=== PATIENT | female | born 1955 | race American Indian/Alaskan Native ===

== ENCOUNTER 2016-11-16 06:45 | Day surgery (SDC) | payer BC ==
--- NOTE | 2016-11-16 08:03 | Discharge Summary ---
Providers - Providers Date of discharge: 11/16/16 Attending physician: ALLYSSA ESTEVEZ Primary care physician: GINA WATSON Hospitalization Reason for admission: outpatient EGD Condition: Stable Procedures: EGD Disposition: - TO HOME OR SELFCARE Core Measure Documentation - Palliative Care Palliative Care/ Comfort Measures: Not Applicable - Core Measures Any of the following diagnoses?: none Exam - Physical Exam Narrative exam: unchanged from preop - Constitutional Vitals: Temp Pulse Resp BP Pulse Ox 97.4 F L 49 L 18 117/66 99 11/16/16 07:53 11/16/16 07:53 11/16/16 07:53 11/16/16 07:53 11/16/16 07:53 Plan Activity: advance as tolerated Diet: low carbohydrate Follow up with: GINA WATSON MD [Primary Care Provider] - 7 Days
--- NOTE | 2016-11-16 08:20 | Anesthesia Consultation ---
Anesthesia Consult and Med Hx Date of service: 11/16/16 - Airway Anesthetic Teeth Evaluation: Dentures, Edentulous ROM Head & Neck: Adequate Mental/Hyoid Distance: Adequate Mallampati Class: Class II Intubation Access Assessment: Probably Good - Pulmonary Exam CTA: Yes - Cardiac Exam Cardiac Exam: RRR - Pre-Operative Health Status ASA Pre-Surgery Classification: ASA3 Proposed Anesthetic Plan: MAC - Pulmonary Hx Smoking: Yes (quit in 1975) Hx Asthma: No Hx Sleep Apnea: No - Cardiovascular System Hx Hypertension: Yes - Central Nervous System Hx Seizures: No CVA: No - Endocrine Hx Renal Disease: No Hx End Stage Renal Disease: No Hx Non-Insulin Dependent Diabetes: Yes - Other Systems Hx Obesity: Yes (morbid)
--- NOTE | 2016-11-16 08:20 | Anesthesia Day of Surgery ---
Anesthesia Day of Surgery - Day of Surgery Patient Examined: Yes Patient H&P Reviewed: Yes Patient is NPO: Yes
[2016-11-16] MEDS: NACL 0.9% 1000 ML 1,000 ML IV SCH ×2 (08:37→11:26)
[2016-11-16] MEDS ORDERED: DIPRIVAN 10 MG/ML IV ONE (09:00)
[2016-11-16] MEDS ORDERED: WATER FOR IRRIG STERILE IR ONE (10:26)
--- NOTE | 2016-11-16 10:39 | Operative Report ---
Operative Report Operative Report: EGD Post bypass DATE: 11/16/16 OPERATIVE REPORT - EGD PREOP DIAGNOSIS: gastric dyspepsia POSTOP DIAGNOSIS: failure of gastro-jejunal anastamosis SURGERY: Upper endoscopy. SURGEON: Edwin Phillips M.D. MASONRY INSTRUCTOR: n/a TYPE OF ANESTHESIA: MAC. ESTIMATED BLOOD LOSS: None. COMPLICATIONS: None. SPECIMENS REMOVED: None. FINDINGS: 1. normal esophagus 2. gastric pouch 30ml 3. gastrojejunal anastomosis is 20mm INDICATIONS:INDICATION FOR PROCEDURE: Patient is a 67-year-old female s/p gastric bypass in. The patient is here today for evaluation for revisional surgery. The patient is here for a planned EGD for gastric dyspepsia. PROCEDURE DETAILS: After consent was reviewed, patient was taken back to the operating room where patient was placed in the left lateral decubitus position and a bite block was placed in the mouth. After a time-out was called, MAC anesthesia was initiated. I then passed the endoscope into the patients oropharynx, into the esophagus, visualized the entire esophagus, which was all within normal limits. I then visualized the gastric pouch which was normal and about 30ml in size. The gastrojejunal anastomosis was about 20mm. The proximal portion of the vandana limb was normal. I then desufflated the gastric pouch and removed the endoscope. Patient tolerated procedure well and was transferred to recovery room in good and stable condition
[2016-11-16 11:02] VITALS: BP 125/71
== END 2016-11-16 06:46 | disposition home or self-care (01) ==
LOC: GIO 06:45
PROVIDERS: ATTEND Surgery
DX: K91.89 Other postprocedural complications and disorders of digestive system (principal); E11.9 Type 2 diabetes mellitus without complications; I10 Essential (primary) hypertension; E66.01 Morbid (severe) obesity due to excess calories; Z68.41 Body mass index [BMI] 40.0-44.9, adult; Z87.891 Personal history of nicotine dependence; Z79.899 Other long term (current) drug therapy; Y83.2 Surgical operation with anastomosis, bypass or graft as the cause of abnormal reaction of the patient, or of later complication, without mention of misadventure at the time of the procedure
CPT/HCPCS: 43235; 82962; J2704; J7030

== ENCOUNTER 2017-09-22 13:55 | Emergency (ER) | payer BC ==
[2017-09-22 14:13] VITALS: BP 162/99
[2017-09-22] MEDS ORDERED: PEPCID IV ONE (14:21)
[2017-09-22] MEDS ORDERED: DECADRON IV ONE (14:21)
[2017-09-22] MEDS ORDERED: NACL 0.9% 1000 ML 1,000 ML IV ONE (14:21)
[2017-09-22] MEDS ORDERED: BENADRYL IV ONE (14:21)
--- NOTE | 2017-09-22 14:34 | Emergency Department Report ---
ED Allergic Reaction HPI - General Chief complaint: Allergic Reaction Stated complaint: LEG PAIN Time Seen by Provider: 09/22/17 14:21 Source: patient Mode of arrival: Ambulatory Limitations: No Limitations - History of Present Illness Initial Comments: This is a 62-year-old female nontoxic, well nourished in appearance, no acute signs of distress presents to the ED with c/o of hives and itching. Patient stated she ate shrimp this afternoon and developed this. Patient stated has no known history of shrimp allergies. Patient denies any facial swelling, fever, chills, drooling, hoarseness, chest pain, shortness of breathe, abdominal pain, back pain. Patient denies difficulty breathing. Patient denies any drug allergies. Past medical history includes diabetes, GERD and hypertension. MD Complaint: allergic reaction, hives -: This afternoon Exposure: food Symptoms: rash, itching. denies: facial swelling, lip swelling, difficulty swallowing, difficulty breathing, orolingual swelling, hoarseness, syncopy, dizziness, nausea, vomiting, abdominal pain Severity: mild Treatment Prior to Arrival: none Previous Allergy History: none - Related Data Home Medications Medication Instructions Recorded Confirmed Last Taken Azilsartan Medoxomil [Edarbi] 80 mg PO DAILY 05/05/15 05/05/15 Unknown Eszopiclone [Lunesta] 3 mg PO QHS 05/05/15 05/05/15 11/15/16 Glimepiride [Amaryl] 4 mg PO BID 05/05/15 05/05/15 11/15/16 Meloxicam [Mobic] 7.5 mg PO QDAY 05/05/15 05/05/15 11/15/16 Aspirin [Adult Low Dose Aspirin EC] 81 mg PO 11/16/16 11/15/16 Diltiazem 11/16/16 11/15/16 Empagliflozin [Jardiance] 25 mg PO DAILY 11/16/16 11/16/16 11/15/16 Esomeprazole Magnesium [NexIUM] 40 mg PO QDAY 11/16/16 11/16/16 11/15/16 Eszopiclone [Lunesta] 3 mg PO 11/16/16 11/15/16 Isosorb Dinit/Hydralazine [Bidil 07/10/17 07/09/17 20/37.5MG] Losartan [Cozaar] 50 mg PO QDAY 11/16/16 11/16/16 11/15/16 Methocarbamol [Robaxin TAB] 750 mg PO 11/16/16 11/15/16 Pravastatin 40 mg PO DAILY 11/16/16 11/16/16 11/15/16 Pregabalin [Lyrica] 75 mg PO 11/16/16 11/15/16 Previous Rx's Medication Instructions Recorded Last Taken Type Prednisone [predniSONE 10 mg 10 mg PO .TAPER #1 tab.ds.pk 09/22/17 Unknown Rx (6-Day Pack, 21 Tabs)] diphenhydrAMINE [Benadryl CAP] 25 mg PO Q8HR PRN #20 capsule 09/22/17 Unknown Rx Allergies Allergy/AdvReac Type Severity Reaction Status Date / Time No Known Allergies Allergy Unverified 05/05/15 16:07 ED Review of Systems ROS: Stated complaint: LEG PAIN Other details as noted in HPI Constitutional: denies: chills, fever Eyes: denies: eye pain, eye discharge, vision change ENT: denies: ear pain, throat pain Respiratory: denies: cough, shortness of breath, wheezing Cardiovascular: denies: chest pain, palpitations Endocrine: no symptoms reported Gastrointestinal: denies: abdominal pain, nausea, diarrhea Genitourinary: denies: urgency, dysuria, discharge Musculoskeletal: denies: back pain, joint swelling, arthralgia Skin: rash. denies: lesions Neurological: denies: headache, weakness, paresthesias Psychiatric: denies: anxiety, depression Hematological/Lymphatic: denies: easy bleeding, easy bruising ED Past Medical Hx - Past Medical History Previous Medical History?: Yes Hx Hypertension: Yes Hx Diabetes: Yes Hx GERD: Yes Hx Renal Disease: No Hx Seizures: No Hx Asthma: No - Surgical History Past Surgical History?: Yes Additional Surgical History: HYSTO/HEMORRHOIDECTOMY/GASTRIC BY PASS LAP BAND HERNIA.ROTATOR CUP BLADDER PROLAPSE. MASS REMOVAL RIGHT FOOT. - Social History Smoking Status: Former Smoker Substance Use Type: Prescribed - Medications Home Medications: Home Medications Medication Instructions Recorded Confirmed Last Taken Type Azilsartan Medoxomil [Edarbi] 80 mg PO DAILY 05/05/15 05/05/15 Unknown History Eszopiclone [Lunesta] 3 mg PO QHS 05/05/15 05/05/15 11/15/16 History Glimepiride [Amaryl] 4 mg PO BID 05/05/15 05/05/15 11/15/16 History Meloxicam [Mobic] 7.5 mg PO QDAY 05/05/15 05/05/15 11/15/16 History Aspirin [Adult Low Dose Aspirin EC] 81 mg PO 11/16/16 11/15/16 History Diltiazem 11/16/16 11/15/16 History Empagliflozin [Jardiance] 25 mg PO DAILY 11/16/16 11/16/16 11/15/16 History Esomeprazole Magnesium [NexIUM] 40 mg PO QDAY 11/16/16 11/16/16 11/15/16 History Eszopiclone [Lunesta] 3 mg PO 11/16/16 11/15/16 History Isosorb Dinit/Hydralazine [Bidil 11/16/16 11/15/16 History 20/37.5MG] Losartan [Cozaar] 50 mg PO QDAY 11/16/16 11/16/16 11/15/16 History Methocarbamol [Robaxin TAB] 750 mg PO 11/16/16 11/15/16 History Pravastatin 40 mg PO DAILY 11/16/16 11/16/16 11/15/16 History Pregabalin [Lyrica] 75 mg PO 11/16/16 11/15/16 History Prednisone [predniSONE 10 mg 10 mg PO .TAPER #1 tab.ds.pk 09/22/17 Unknown Rx (6-Day Pack, 21 Tabs)] diphenhydrAMINE [Benadryl CAP] 25 mg PO Q8HR PRN #20 capsule 09/22/17 Unknown Rx ED Physical Exam - General Limitations: No Limitations General appearance: alert, in no apparent distress - Head Head exam: Present: atraumatic, normocephalic - Eye Eye exam: Present: normal appearance Pupils: Present: normal accommodation - ENT ENT exam: Present: normal exam, normal orophraynx, mucous membranes moist, TM's normal bilaterally, normal external ear exam, other (Tongue normal size. No angioedema. No facial swelling. ) - Neck Neck exam: Present: normal inspection, full ROM. Absent: tenderness, meningismus, lymphadenopathy - Respiratory Respiratory exam: Present: normal lung sounds bilaterally. Absent: respiratory distress, wheezes, rales, rhonchi, stridor, chest wall tenderness, accessory muscle use, decreased breath sounds, prolonged expiratory - Cardiovascular Cardiovascular Exam: Present: regular rate, normal rhythm, normal heart sounds. Absent: bradycardia, tachycardia, irregular rhythm, systolic murmur, diastolic murmur, rubs, gallop - GI/Abdominal GI/Abdominal exam: Present: soft, normal bowel sounds. Absent: distended, tenderness, guarding, rebound, rigid, diminished bowel sounds - Rectal Rectal exam: Present: deferred - Extremities Exam Extremities exam: Present: normal inspection, full ROM, normal capillary refill - Back Exam Back exam: Present: normal inspection, full ROM - Neurological Exam Neurological exam: Present: alert, oriented X3, normal gait - Psychiatric Psychiatric exam: Present: normal affect, normal mood - Skin Skin exam: Present: warm, dry, intact, normal color, rash, urticaria. Absent: erythema ED Course Vital Signs 09/22/17 14:09 Temperature 98.6 F Pulse Rate 88 Respiratory 20 Rate Blood Pressure 162/99 O2 Sat by Pulse 98 Oximetry - Reevaluation(s) Reevaluation #1: 09/22/17 14:35 Patient is speaking in full sentences with no signs of distress noted. ED Medical Decision Making - Medical Decision Making This is a 62-year-old female that presents with allergic reaction. Patient is stable and was examined by me. There is no angioedema present. No facial swelling or tongue swelling. Patient is breathing normally and no hoarseness present. Patient received Benadryl, 1 L normal saline, Pepcid, Decadron IV in the ED. Patient stated that symptoms has subsided a itching. Patient's family members currently at the bedside and stated we'll draw the patient home after discharged due to drowsiness of Benadryl. Patient is discharged with prednisone. Patient was referred to Follow-up with a primary care doctor in 3- 5 days or if symptoms worsen and continue return to emergency room as soon as possible. At time of discharge, the patient does not seem toxic or ill in appearance. No acute signs of distress noted. Patient agrees to discharge treatment plan of care. No further questions noted by the patient. Critical care attestation.: If time is entered above; I have spent that time in minutes in the direct care of this critically ill patient, excluding procedure time. ED Disposition Clinical Impression: Urticarial rash Allergic reaction Qualifiers: Encounter type: initial encounter Qualified Code(s): T78.40XA - Allergy, unspecified, initial encounter Disposition: TO HOME OR SELFCARE Is pt being admited?: No Does the pt Need Aspirin: No Condition: Stable Instructions: Allergies (ED), Urticaria (ED), Prednisone (By mouth), Diphenhydramine (By mouth) Additional Instructions: Follow-up with a primary care doctor in 3-5 days or if symptoms worsen and continue return to emergency room as soon as possible. Prescriptions: diphenhydrAMINE [Benadryl CAP] 25 mg PO Q8HR PRN #20 capsule PRN Reason: Itching Prednisone [predniSONE 10 mg (6-Day Pack, 21 Tabs)] 10 mg PO .TAPER #1 tab.ds.pk Referrals: PRIMARY CARE, [Primary Care Provider] - 3-5 Days HECTOR SORIANO MD [Staff Physician] - 3-5 Days [facility] [Outside] - 3-5 Days [facility] [Outside] - 3-5 Days Forms: Work/School Release Form(ED)
== END 2017-09-22 16:50 | disposition home or self-care (01) ==
LOC: ED 13:55
DX: L50.9 Urticaria, unspecified (principal); T78.1XXA Other adverse food reactions, not elsewhere classified, initial encounter; I10 Essential (primary) hypertension; E11.9 Type 2 diabetes mellitus without complications; K21.9 Gastro-esophageal reflux disease without esophagitis; Z87.891 Personal history of nicotine dependence; Z79.82 Long term (current) use of aspirin; X58.XXXA Exposure to other specified factors, initial encounter
CPT/HCPCS: 96361; 96374; 96375; 99282; J1100; J1200; J7030

== ENCOUNTER 2019-04-12 09:27 | Emergency (ER) | payer BC, MEDICARE ==
[2019-04-12 09:50] VITALS: BP 133/72
--- NOTE | 2019-04-12 10:56 | Emergency Department Report ---
- General Chief Complaint: Upper Respiratory Infection Stated Complaint: COUGH/CHEST PAIN/RUNNY NOSE/SOB Time Seen by Provider: 04/12/19 10:18 Source: patient Mode of arrival: Ambulatory Limitations: No Limitations - History of Present Illness Initial Comments: 64-year-old female with history of hypertension, diabetes, Raynaud's disease, presents to ED with URI symptoms 2 days. Patient reports headache, sore throat, cough, shortness of breath, chest pain with cough, body aches, and chills. She denies any nausea, vomiting, diarrhea. Denies any known sick contacts. Patient states she has not received the flu or pneumonia shots. Patient reports she is taking Coricidin HBP at home. PCP: Heidy Ribera MD Complaint: cough -: days(s) (2) Severity: moderate Consistency: constant Improves With: nothing Worsens With: nothing Associated Symptoms: chills, myalgias, headache, nasal congestion, sore throat, cough, chest pain (with cough), shortness of breath. denies: fever, abdominal pain, nausea, vomiting, diarrhea - Related Data Home Medications Medication Instructions Recorded Confirmed Last Taken Azilsartan Medoxomil [Edarbi] 80 mg PO DAILY 05/05/15 05/05/15 Unknown Eszopiclone [Lunesta] 3 mg PO QHS 05/05/15 05/05/15 11/15/16 Glimepiride [Amaryl] 4 mg PO BID 05/05/15 05/05/15 11/15/16 Meloxicam [Mobic] 7.5 mg PO QDAY 05/05/15 05/05/15 11/15/16 Aspirin [Adult Low Dose Aspirin EC] 81 mg PO 11/16/16 11/15/16 Diltiazem 11/16/16 11/15/16 Empagliflozin [Jardiance] 25 mg PO DAILY 11/16/16 11/16/16 11/15/16 Esomeprazole Magnesium [NexIUM] 40 mg PO QDAY 11/16/16 11/16/16 11/15/16 Eszopiclone [Lunesta] 3 mg PO 11/16/16 11/15/16 Isosorb Dinit/Hydralazine [Bidil 11/16/16 11/15/16 20/37.5MG] Losartan [Cozaar] 50 mg PO QDAY 11/16/16 11/16/16 11/15/16 Pravastatin 40 mg PO DAILY 11/16/16 11/16/16 11/15/16 Pregabalin [Lyrica] 75 mg PO 11/16/16 11/15/16 methOCARBAMOL [Robaxin TAB] 750 mg PO 11/16/16 11/15/16 Previous Rx's Medication Instructions Recorded Last Taken Type Prednisone [predniSONE 10 mg 10 mg PO .TAPER #1 tab.ds.pk 09/22/17 Unknown Rx (6-Day Pack, 21 Tabs)] diphenhydrAMINE [Benadryl CAP] 25 mg PO Q8HR PRN #20 capsule 09/22/17 Unknown Rx Albuterol Sulfate [Proventil Hfa] 2 puff IH Q4HR PRN #1 hfa.aer.ad 04/12/19 Unknown Rx Benzonatate [Tessalon Perles] 100 mg PO Q8HR PRN #20 capsule 04/12/19 Unknown Rx Naproxen [Naprosyn] 500 mg PO BID #20 tablet 04/12/19 Unknown Rx predniSONE [Deltasone] 50 mg PO QDAY #5 tab 04/12/19 Unknown Rx Allergies Allergy/AdvReac Type Severity Reaction Status Date / Time No Known Allergies Allergy Unverified 05/05/15 16:07 ED Review of Systems ROS: Stated complaint: COUGH/CHEST PAIN/RUNNY NOSE/SOB Other details as noted in HPI Comment: All other systems reviewed and negative Constitutional: chills. denies: fever ENT: throat pain Respiratory: cough, shortness of breath Cardiovascular: chest pain (with cough) Gastrointestinal: denies: nausea, vomiting Musculoskeletal: myalgia Neurological: headache ED Past Medical Hx - Past Medical History Previous Medical History?: Yes Hx Hypertension: Yes Hx Diabetes: Yes Hx GERD: Yes Hx Renal Disease: No Hx Seizures: No Hx Asthma: No - Surgical History Past Surgical History?: Yes Additional Surgical History: HYSTO/HEMORRHOIDECTOMY/GASTRIC BY PASS LAP BAND HERNIA.ROTATOR CUP BLADDER PROLAPSE. MASS REMOVAL RIGHT FOOT. - Social History Smoking Status: Never Smoker Substance Use Type: None - Medications Home Medications: Home Medications Medication Instructions Recorded Confirmed Last Taken Type Azilsartan Medoxomil [Edarbi] 80 mg PO DAILY 05/05/15 05/05/15 Unknown History Eszopiclone [Lunesta] 3 mg PO QHS 05/05/15 05/05/15 11/15/16 History Glimepiride [Amaryl] 4 mg PO BID 05/05/15 05/05/15 11/15/16 History Meloxicam [Mobic] 7.5 mg PO QDAY 05/05/15 05/05/15 11/15/16 History Aspirin [Adult Low Dose Aspirin EC] 81 mg PO 11/16/16 11/15/16 History Diltiazem 11/16/16 11/15/16 History Empagliflozin [Jardiance] 25 mg PO DAILY 11/16/16 11/16/16 11/15/16 History Esomeprazole Magnesium [NexIUM] 40 mg PO QDAY 11/16/16 11/16/16 11/15/16 History Eszopiclone [Lunesta] 3 mg PO 11/16/16 11/15/16 History Isosorb Dinit/Hydralazine [Bidil 11/16/16 11/15/16 History 20/37.5MG] Losartan [Cozaar] 50 mg PO QDAY 11/16/16 11/16/16 11/15/16 History Pravastatin 40 mg PO DAILY 11/16/16 11/16/16 11/15/16 History Pregabalin [Lyrica] 75 mg PO 11/16/16 11/15/16 History methOCARBAMOL [Robaxin TAB] 750 mg PO 11/16/16 11/15/16 History Prednisone [predniSONE 10 mg 10 mg PO .TAPER #1 tab.ds.pk 09/22/17 Unknown Rx (6-Day Pack, 21 Tabs)] diphenhydrAMINE [Benadryl CAP] 25 mg PO Q8HR PRN #20 capsule 09/22/17 Unknown Rx Albuterol Sulfate [Proventil Hfa] 2 puff IH Q4HR PRN #1 hfa.aer.ad 04/12/19 Unknown Rx Benzonatate [Tessalon Perles] 100 mg PO Q8HR PRN #20 capsule 04/12/19 Unknown Rx Naproxen [Naprosyn] 500 mg PO BID #20 tablet 04/12/19 Unknown Rx predniSONE [Deltasone] 50 mg PO QDAY #5 tab 04/12/19 Unknown Rx ED Physical Exam - General Limitations: No Limitations General appearance: alert, in no apparent distress, other (appears uncomfortable) - Head Head exam: Present: atraumatic, normocephalic - Eye Eye exam: Present: conjunctival injection - ENT ENT exam: Present: mucous membranes moist - Neck Neck exam: Present: normal inspection, full ROM. Absent: meningismus - Respiratory Respiratory exam: Present: wheezes (scattered), other (barking cough on exam). Absent: respiratory distress - Cardiovascular Cardiovascular Exam: Present: regular rate, normal rhythm - GI/Abdominal GI/Abdominal exam: Present: soft. Absent: distended, tenderness - Extremities Exam Extremities exam: Present: normal inspection - Neurological Exam Neurological exam: Present: alert, oriented X3 - Psychiatric Psychiatric exam: Present: normal affect, normal mood - Skin Skin exam: Present: warm, dry, intact, normal color ED Course Vital Signs 04/12/19 09:48 Temperature 98.8 F Pulse Rate 62 Respiratory 16 Rate Blood Pressure 133/72 [Left] O2 Sat by Pulse 96 Oximetry ED Medical Decision Making - EKG Data -: EKG Interpreted by Nv EKG shows normal: sinus rhythm Rate: normal - EKG Data Interpretation: no acute changes - Radiology Data Radiology results: report reviewed, image reviewed - Medical Decision Making 64-year-old female presents to ED with URI symptoms 2 days. On exam, patient appears uncomfortable, has barking cough. Chest pain is reported with cough. EKG done at triage shows no acute findings. Patient has scattered wheezing on exam. Chest x-ray was done and shows no evidence of pneumonia at this time. Flu swabs were negative. Will treat patient as acute bronchitis. Vital signs are normal. She is in no respiratory distress. We'll discharge at this time. Outpatient follow-up advised. Return precautions given. - Differential Diagnosis pneumonia, influenza, bronchitis Critical care attestation.: If time is entered above; I have spent that time in minutes in the direct care of this critically ill patient, excluding procedure time. ED Disposition Clinical Impression: Acute bronchitis Disposition: DC- TO HOME OR SELFCARE Is pt being admited?: No Condition: Stable Instructions: Acute Bronchitis (ED) Prescriptions: predniSONE [Deltasone] 50 mg PO QDAY #5 tab Naproxen [Naprosyn] 500 mg PO BID #20 tablet Albuterol Sulfate [Proventil Hfa] 2 puff IH Q4HR PRN #1 hfa.aer.ad PRN Reason: Wheezing Benzonatate [Tessalon Perles] 100 mg PO Q8HR PRN #20 capsule PRN Reason: Cough Referrals: PRIMARY CARE, [Primary Care Provider] - [facility], [place] Time of Disposition: 11:29
--- NOTE | 2019-04-12 11:13 | XRay Report ---
CHEST 2 VIEWS INDICATION: cough, sob. COMPARISON: None FINDINGS: Support devices: None. Heart: Within normal limits. Lungs/pleura: No acute air space or interstitial disease. No pneumothorax. Additional findings: None. IMPRESSION: Normal chest x-ray. Signer Name: Rivas Hong Jr, MD Signed: 04/12/2019 11:09 AM Workstation Name: [id number]
== END 2019-04-12 11:35 | disposition home or self-care (01) ==
LOC: ED 09:27
DX: J20.9 Acute bronchitis, unspecified (principal); I10 Essential (primary) hypertension; E11.9 Type 2 diabetes mellitus without complications; K21.9 Gastro-esophageal reflux disease without esophagitis; Z79.899 Other long term (current) drug therapy
CPT/HCPCS: 71046; 87400; 93005; 93010

== ENCOUNTER 2020-11-03 21:08 | Emergency (ER) | payer SELFPAY ==
[2020-11-03 21:59] VITALS: BP 134/74
[2020-11-04] MEDS ORDERED: HYDROcodone/ACETAMINOPHEN 7.5-325MG TAB PO ONE (01:07)
[2020-11-04] MEDS ORDERED: ONDANSETRON 4 MG ODT TAB PO ONE (01:07)
[2020-11-04] MEDS ORDERED: IBUPROFEN 600 MG TAB PO ONE (01:07)
--- NOTE | 2020-11-04 02:05 | XRay Report ---
Left knee 3 views INDICATION: Left knee pain IMPRESSION: No fracture or subluxation of the left knee is identified. Small knee effusion. Signer Name: Sander Clayton MD Signed: 11/04/2020 2:01 AM Workstation Name: [id number]
--- NOTE | 2020-11-04 02:06 | XRay Report ---
Left ankle 4 views INDICATION: Left ankle pain IMPRESSION: Severe subcutaneous edema. Osteopenia. No fracture identified. Left foot 3 views INDICATION: Left foot pain and swelling IMPRESSION: Chronic changes involving the little toe phalanx. No acute fracture or subluxation identi fied. Osteopenia. Moderate edema surrounding the midfoot and distal forefoot. Healed postoperative ch anges of the proximal great toe phalanx. Signer Name: Sander Clayton MD Signed: 11/04/2020 2:02 AM Workstation Name: [id number]
--- NOTE | 2020-11-04 02:45 | Emergency Department Report ---
ED Fall HPI - General Chief Complaint: Extremity Injury, Lower Stated Complaint: LEFT TOE INJURY/FALL Source: patient Mode of arrival: Ambulatory - History of Present Illness Initial Comments: Patient is a 65-year-old -[place] female with history of hypertension, etb-zwkyate-evrnmkqes diabetes and GERD who presents to the ED with complaint of acute onset persistent severe left foot and ankle pain with swelling and left knee pain after she tripped on a string at home and fell down landing on the left leg about 2 hours ago. Patient states that she is unable to bear weight on the left leg because of severe pain and swelling. Patient denies hip pain, loss of consciousness, seizures, syncope, dizziness, lightheadedness, chest pain or shortness of breath, low back pain, numbness and tingling or weakness of lower extremities bilaterally, neck pain, vision changes, nausea and vomiting. MD Complaint: fall, other (Left leg, left knee, left ankle and left foot pain a nd swelling) -: Sudden, hour(s) (2) Fall From: standing When Fall Occurred: 1-3 hours [employer] [employer] Fall Witnessed: yes, by family Place Fall Occurred: home Loss of Consciousness: none Prolonged Down Time?: no Symptoms Prior to Fall: none Location: other (Left knee, left ankle and left foot pain and swelling) Location - Extremities: Left: Knee (Pain and swelling), Ankle (Pain and swelling), Foot (Pain and swelling) Severity: severe Severity scale (0 -10): 8 Quality: sharp, aching Context: tripped/slipped Associated Symptoms: denies. denies: headache, neck pain, numbness, weakness, chest paint, shortness of breath, abdominal pain, hematuria, unable to walk, lightheaded, vertigo, confusion - Related Data Home Medications Medication Instructions Recorded Confirmed Last Taken Azilsartan Medoxomil [Edarbi] 80 mg PO DAILY 05/05/15 05/05/15 Unknown Eszopiclone [Lunesta] 3 mg PO QHS 05/05/15 05/05/15 11/15/16 Glimepiride [Amaryl] 4 mg PO BID 05/05/15 05/05/15 11/15/16 Meloxicam [Mobic] 7.5 mg PO QDAY 05/05/15 05/05/15 11/15/16 Aspirin [Adult Low Dose Aspirin EC] 81 mg PO 11/16/16 11/15/16 Diltiazem 11/16/16 11/15/16 Empagliflozin [Jardiance] 25 mg PO DAILY 11/16/16 11/16/16 11/15/16 Esomeprazole Magnesium [NexIUM] 40 mg PO QDAY 11/16/16 11/16/16 11/15/16 Eszopiclone [Lunesta] 3 mg PO 11/16/16 11/15/16 Isosorb Dinit/Hydralazine [Bidil 11/16/16 11/15/16 20/37.5MG] Losartan [Cozaar] 50 mg PO QDAY 11/16/16 11/16/16 11/15/16 Pravastatin 40 mg PO DAILY 11/16/16 11/16/16 11/15/16 Pregabalin [Lyrica] 75 mg PO 11/16/16 11/15/16 methOCARBAMOL [Robaxin TAB] 750 mg PO 11/16/16 11/15/16 Previous Rx's Medication Instructions Recorded Last Taken Type Prednisone [predniSONE 10 mg 10 mg PO .TAPER #1 tab.ds.pk 09/22/17 Unknown Rx (6-Day Pack, 21 Tabs)] diphenhydrAMINE [Benadryl CAP] 25 mg PO Q8HR PRN #20 capsule 09/22/17 Unknown Rx Albuterol Sulfate [Proventil Hfa] 2 puff IH Q4HR PRN #1 hfa.aer.ad 04/12/19 Unknown Rx Benzonatate [Tessalon Perles] 100 mg PO Q8HR PRN #20 capsule 04/12/19 Unknown Rx Naproxen [Naprosyn] 500 mg PO BID #20 tablet 04/12/19 Unknown Rx predniSONE [Deltasone] 50 mg PO QDAY #5 tab 04/12/19 Unknown Rx Ibuprofen [Motrin] 600 mg PO Q8H PRN #30 tablet 11/04/20 Unknown Rx traMADoL [Ultram] 50 mg PO Q6HR PRN #12 tablet 11/04/20 Unknown Rx Allergies Allergy/AdvReac Type Severity Reaction Status Date / Time No Known Allergies Allergy Unverified 05/05/15 16:07 ED Review of Systems ROS: Stated complaint: LEFT TOE INJURY/FALL Other details as noted in HPI Constitutional: denies: chills, fever Eyes: denies: eye pain, eye discharge, vision change ENT: denies: ear pain, throat pain Respiratory: denies: cough, shortness of breath, wheezing Cardiovascular: denies: chest pain, palpitations Endocrine: no symptoms reported Gastrointestinal: denies: abdominal pain, nausea, diarrhea Genitourinary: denies: urgency, dysuria, discharge Musculoskeletal: joint swelling (Left ankle and foot pain with swelling), arthralgia (Left knee pain, left ankle and foot pain with swelling), myalgia. denies: back pain Skin: denies: rash, lesions Neurological: denies: headache, weakness, paresthesias Psychiatric: denies: anxiety, depression Hematological/Lymphatic: denies: easy bleeding, easy bruising ED Past Medical Hx - Past Medical History Previous Medical History?: Yes Hx Hypertension: Yes Hx Diabetes: Yes Hx GERD: Yes Hx Renal Disease: No Hx Seizures: No Hx Asthma: No - Surgical History Past Surgical History?: Yes Additional Surgical History: HYSTO/HEMORRHOIDECTOMY/GASTRIC BY PASS LAP BAND HERNIA.ROTATOR CUP BLADDER PROLAPSE. MASS REMOVAL RIGHT FOOT. - Social History Smoking Status: Never Smoker Substance Use Type: None - Medications Home Medications: Home Medications Medication Instructions Recorded Confirmed Last Taken Type Azilsartan Medoxomil [Edarbi] 80 mg PO DAILY 05/05/15 05/05/15 Unknown History Eszopiclone [Lunesta] 3 mg PO QHS 05/05/15 05/05/15 11/15/16 History Glimepiride [Amaryl] 4 mg PO BID 05/05/15 05/05/15 11/15/16 History Meloxicam [Mobic] 7.5 mg PO QDAY 05/05/15 05/05/15 11/15/16 History Aspirin [Adult Low Dose Aspirin EC] 81 mg PO 11/16/16 11/15/16 History Diltiazem 11/16/16 11/15/16 History Empagliflozin [Jardiance] 25 mg PO DAILY 11/16/16 11/16/16 11/15/16 History Esomeprazole Magnesium [NexIUM] 40 mg PO QDAY 11/16/16 11/16/16 11/15/16 History Eszopiclone [Lunesta] 3 mg PO 11/16/16 11/15/16 History Isosorb Dinit/Hydralazine [Bidil 11/16/16 11/15/16 History 20/37.5MG] Losartan [Cozaar] 50 mg PO QDAY 11/16/16 11/16/16 11/15/16 History Pravastatin 40 mg PO DAILY 11/16/16 11/16/16 11/15/16 History Pregabalin [Lyrica] 75 mg PO 11/16/16 11/15/16 History methOCARBAMOL [Robaxin TAB] 750 mg PO 11/16/16 11/15/16 History Prednisone [predniSONE 10 mg 10 mg PO .TAPER #1 tab.ds.pk 09/22/17 Unknown Rx (6-Day Pack, 21 Tabs)] diphenhydrAMINE [Benadryl CAP] 25 mg PO Q8HR PRN #20 capsule 09/22/17 Unknown Rx Albuterol Sulfate [Proventil Hfa] 2 puff IH Q4HR PRN #1 hfa.aer.ad 04/12/19 Unknown Rx Benzonatate [Tessalon Perles] 100 mg PO Q8HR PRN #20 capsule 04/12/19 Unknown Rx Naproxen [Naprosyn] 500 mg PO BID #20 tablet 04/12/19 Unknown Rx predniSONE [Deltasone] 50 mg PO QDAY #5 tab 04/12/19 Unknown Rx Ibuprofen [Motrin] 600 mg PO Q8H PRN #30 tablet 11/04/20 Unknown Rx traMADoL [Ultram] 50 mg PO Q6HR PRN #12 tablet 11/04/20 Unknown Rx ED Physical Exam - General Limitations: No Limitations General appearance: alert, in no apparent distress - Head Head exam: Present: atraumatic, normocephalic, normal inspection - Eye Eye exam: Present: normal appearance, PERRL, EOMI Pupils: Present: normal accommodation - ENT ENT exam: Present: normal exam, normal orophraynx, mucous membranes moist, TM's normal bilaterally, normal external ear exam - Neck Neck exam: Present: normal inspection, full ROM - Respiratory Respiratory exam: Present: normal lung sounds bilaterally. Absent: respiratory distress, wheezes, rales, rhonchi, chest wall tenderness, accessory muscle use, decreased breath sounds - Cardiovascular Cardiovascular Exam: Present: normal rhythm, bradycardia, normal heart sounds. Absent: systolic murmur, diastolic murmur, rubs, gallop - GI/Abdominal GI/Abdominal exam: Present: soft, normal bowel sounds. Absent: tenderness, guarding, rebound, hyperactive bowel sounds, hypoactive bowel sounds, organomegaly - Extremities Exam Extremities exam: Present: normal inspection, tenderness (Palpable left ankle, left foot and left knee tenderness with limited range of motion due to pain), normal capillary refill, pedal edema (1+ pedal edema on the left foot), joint swelling (Left ankle and foot swelling). Absent: full ROM (Limited range of motion of left ankle and foot due to pain), calf tenderness - Back Exam Back exam: Present: normal inspection, full ROM. Absent: tenderness, CVA tenderness (R), CVA tenderness (L), muscle spasm, paraspinal tenderness, vertebral tenderness - Neurological Exam Neurological exam: Present: alert, oriented X3, CN II-XII intact, normal gait, reflexes normal - Psychiatric Psychiatric exam: Present: normal affect, normal mood - Skin Skin exam: Present: warm, dry, intact, normal color. Absent: rash ED Course Vital Signs 11/03/20 21:58 Temperature 98.1 F Pulse Rate 56 L Respiratory 18 Rate Blood Pressure 134/74 O2 Sat by Pulse 100 Oximetry ED Medical Decision Making - Radiology Data Radiology results: report reviewed, image reviewed [place] [id number] XRay Report Signed Patient: MERLIN POWERS MR#: [id number] : 1955 Acct:[id number] Age/Sex: 65 / F ADM Date: 11/03/20 Loc: ED Attending Dr: Ordering Physician: TREY FLANNERY Date of Service: 11/04/20 Procedure(s): XR knee 3V LT Accession Number(s): [id number] cc: TREY FLANNERY Fluoro Time In Minutes: Left knee 3 views INDICATION: Left knee pain IMPRESSION: No fracture or subluxation of the left knee is identified. Small knee effusion. Signer Name: Sander Clayton MD Signed: 11/04/2020 2:01 AM Workstation Name: [id number] Transcribed By: BC Dictated By: Sander Clayton MD Electronically Authenticated By: Sander Clayton MD Signed Date/Time: 11/04/20200 DD/ 9 TD/TT: ------ [facility] [address] [place] [address] XRay Report Signed Patient: MERLIN POWERS MR#: [id number] : 1955 Acct:[id number] Age/Sex: 65 / F ADM Date: 11/03/20 Loc: ED Attending Dr: Ordering Physician: TREY FLANNERY Date of Service: 11/04/20 Procedure(s): XR ankle 3+V LT Accession Number(s): [id number] cc: TREY FLANNERY Fluoro Time In Minutes: Left ankle 4 views INDICATION: Left ankle pain IMPRESSION: Severe subcutaneous edema. Osteopenia. No fracture identified. Left foot 3 views INDICATION: Left foot pain and swelling IMPRESSION: Chronic changes involving the little toe phalanx. No acute fracture or subluxation identified. Osteopenia. Moderate edema surrounding the midfoot and distal forefoot. Healed postoperative changes of the proximal great toe phalanx. Signer Name: Sander Clayton MD Signed: 11/04/2020 2:02 AM Workstation Name: [id number] Transcribed By: SMITHA Dictated By: Sander Clayton MD Electronically Authenticated By: Sander Clayton MD Signed Date/Time: 11/04/20201 DD/ 0 TD/TT: - Medical Decision Making This is a 65-year-old -[place] female with history of hypertension, gas-mkskirs-rlcuezrya diabetes and GERD who presents to the ED with complaint of acute onset persistent severe left foot and ankle pain with swelling and left knee pain after she tripped on a string at home and fell down landing on the left leg about 2 hours ago. Patient states that she is unable to bear weight on the left leg because of severe pain and swelling. In the ED, patient is alert and oriented x3 and is not in any distress. The patient however appears to be in significant pain. Patient was treated for pain in the ED. Left ankle x-ray showed no acute fractures or subluxation but significant soft tissue swelling. Left foot x-ray showed no acute fractures or subluxation but soft tissue swellin g. Left knee x-ray also showed no acute fractures and subluxations. On reevaluation, patient's pain is well controlled with medications. Patient's left ankle and foot was splinted with Jose wrap and patient was discharged home on pain medications and advised to follow-up with her primary care physician in 5 to 7 days for reevaluation. Patient was advised return to the ED immediately if symptoms get worse. - Differential Diagnosis Foot fracture; ankle fracture; knee fracture; leg contusion; ankle sprain Critical care attestation.: If time is entered above; I have spent that time in minutes in the direct care of this critically ill patient, excluding procedure time. ED Disposition Clinical Impression: Contusion of left knee and lower leg Qualifiers: Encounter type: initial encounter Qualified Code(s): S80.02XA - Contusion of left knee, initial encounter; S80.12XA - Contusion of left lower leg, initial encounter Severe sprain of left ankle Qualifiers: Encounter type: initial encounter Qualified Code(s): S93.402A - Sprain of unspecified ligament of left ankle, initial encounter Sprain of left foot Qualifiers: Encounter type: initial encounter Qualified Code(s): S93.602A - Unspecified sprain of left foot, initial encounter Disposition: TO HOME OR SELFCARE Is pt being admited?: No Does the pt Need Aspirin: No Condition: Stable Instructions: Contusion, [id number], Foot Sprain, Ankle Sprain, [id number], Knee Sprain, Adult, [id number] Additional Instructions: The left knee, left ankle and left foot x-rays showed no acute fractures or subluxations. Therefore take medications with food, drink plenty of fluids and follow-up with your primary care physician in 5 to 7 days for reevaluation. Return to the ED immediately if symptoms get worse. Prescriptions: Ibuprofen [Motrin] 600 mg PO Q8H PRN #30 tablet PRN Reason: Pain traMADoL [Ultram] 50 mg PO Q6HR PRN #12 tablet PRN Reason: Pain Referrals: GINA WATSON MD [Primary Care Provider] - 3-5 Days Time of Disposition: 02:50 Print Language: JAPANESE
== END 2020-11-04 03:05 | disposition home or self-care (01) ==
LOC: ED 21:08
DX: S93.402A Sprain of unspecified ligament of left ankle, initial encounter (principal); S93.602A Unspecified sprain of left foot, initial encounter; S80.02XA Contusion of left knee, initial encounter; I10 Essential (primary) hypertension; K21.9 Gastro-esophageal reflux disease without esophagitis; E11.9 Type 2 diabetes mellitus without complications; Z98.890 Other specified postprocedural states; Z79.899 Other long term (current) drug therapy; W18.39XA Other fall on same level, initial encounter; Y93.89 Activity, other specified; Y92.89 Other specified places as the place of occurrence of the external cause; Y99.8 Other external cause status
CPT/HCPCS: 99283; Q0162

== ENCOUNTER 2020-11-15 13:17 | Emergency (ER) | payer MEDICARE ==
[2020-11-15] MEDS ORDERED: CETIRIZINE 10 MG TAB PO ONE (13:43)
[2020-11-15] MEDS ORDERED: FAMOTIDINE 20 MG/2 ML INJ IV ONE (13:43)
[2020-11-15] MEDS ORDERED: methylPREDNISolone Sod Succinate 125 MG/2 ML INJ IV ONE (13:43)
--- NOTE | 2020-11-15 14:29 | Emergency Department Report ---
ED Allergic Reaction HPI - General Chief complaint: Allergic Reaction Stated complaint: ALLERGIC REACTION, FACE Time Seen by Provider: 11/15/20 13:43 Source: patient Mode of arrival: Ambulatory Limitations: No Limitations - History of Present Illness Initial Comments: Chief complaint: Allergic reaction HPI: This is a 65-year-old with history of diabetes mellitus, GERD, hypertension who presents with allergic reaction to shrimp. Patient had previous allergic reactions to shrimp 3 to 4 years ago at the same restaurant. Patient developed facial itching after eating shrimp. She noticed rash over her face. She has itching sensation of her upper torso and arms. Patient denies trouble with swallowing. Patient denies syncope. Patient did not seek medical care during previous allergic reaction. She self treated with Benadryl. Patient use Benadryl cream from pharmacy prior to arrival today. She drove her private auto to the emergency department. MD Complaint: hives -: Sudden Exposure: food Symptoms: rash, itching Severity: mild Treatment Prior to Arrival: benadryl (Benadryl cream) Previous Allergy History: other (1 previous reaction to shrimp 3 to 4 years ago) - Related Data Home Medications Medication Instructions Recorded Confirmed Last Taken Azilsartan Medoxomil [Edarbi] 80 mg PO DAILY 05/05/15 05/05/15 Unknown Eszopiclone [Lunesta] 3 mg PO QHS 05/05/15 05/05/15 11/15/16 Glimepiride [Amaryl] 4 mg PO BID 05/05/15 05/05/15 11/15/16 Meloxicam [Mobic] 7.5 mg PO QDAY 05/05/15 05/05/15 11/15/16 Aspirin [Adult Low Dose Aspirin EC] 81 mg PO 11/16/16 11/15/16 Diltiazem 11/16/16 11/15/16 Empagliflozin [Jardiance] 25 mg PO DAILY 11/16/16 11/16/16 11/15/16 Esomeprazole Magnesium [NexIUM] 40 mg PO QDAY 11/16/16 11/16/16 11/15/16 Eszopiclone [Lunesta] 3 mg PO 11/16/16 11/15/16 Isosorb Dinit/Hydralazine [Bidil 07/10/17 07/09/17 20/37.5MG] Losartan [Cozaar] 50 mg PO QDAY 11/16/16 11/16/16 11/15/16 Pravastatin 40 mg PO DAILY 11/16/16 11/16/16 11/15/16 Pregabalin [Lyrica] 75 mg PO 11/16/16 11/15/16 methOCARBAMOL [Robaxin TAB] 750 mg PO 11/16/16 11/15/16 Previous Rx's Medication Instructions Recorded Last Taken Type Prednisone [predniSONE 10 mg 10 mg PO .TAPER #1 tab.ds.pk 09/22/17 Unknown Rx (6-Day Pack, 21 Tabs)] diphenhydrAMINE [Benadryl CAP] 25 mg PO Q8HR PRN #20 capsule 09/22/17 Unknown Rx Albuterol Sulfate [Proventil Hfa] 2 puff IH Q4HR PRN #1 hfa.aer.ad 04/12/19 Unknown Rx Benzonatate [Tessalon Perles] 100 mg PO Q8HR PRN #20 capsule 04/12/19 Unknown Rx Naproxen [Naprosyn] 500 mg PO BID #20 tablet 04/12/19 Unknown Rx predniSONE [Deltasone] 50 mg PO QDAY #5 tab 04/12/19 Unknown Rx Ibuprofen [Motrin] 600 mg PO Q8H PRN #30 tablet 11/04/20 Unknown Rx traMADoL [Ultram] 50 mg PO Q6HR PRN #12 tablet 11/04/20 Unknown Rx Cetirizine HCl 10 mg PO DAILY 7 Days #7 tablet 11/15/20 Unknown Rx EPINEPHrine [Epipen] 0.3 mg IJ ONCE #1 auto.injct 11/15/20 Unknown Rx Famotidine [Acid Controller] 20 mg PO BID 3 Days #6 tablet 11/15/20 Unknown Rx predniSONE [Deltasone] 3 tab PO QDAY 3 Days #9 tab 11/15/20 Unknown Rx Allergies Allergy/AdvReac Type Severity Reaction Status Date / Time No Known Allergies Allergy Verified 11/15/20 13:20 ED Review of Systems ROS: Stated complaint: ALLERGIC REACTION, FACE Other details as noted in HPI Comment: All other systems reviewed and negative Constitutional: denies: fever, malaise Respiratory: denies: cough, shortness of breath, wheezing Cardiovascular: denies: chest pain Skin: rash ED Past Medical Hx - Past Medical History Previous Medical History?: Yes Hx Hypertension: Yes Hx Diabetes: Yes Hx GERD: Yes Hx Renal Disease: No Hx Seizures: No Hx Asthma: No - Surgical History Past Surgical History?: Yes Additional Surgical History: HYSTO/HEMORRHOIDECTOMY/GASTRIC BY PASS LAP BAND HERNIA.ROTATOR CUP BLADDER PROLAPSE. MASS REMOVAL RIGHT FOOT. - Social History Smoking Status: Never Smoker Substance Use Type: None - Medications Home Medications: Home Medications Medication Instructions Recorded Confirmed Last Taken Type Azilsartan Medoxomil [Edarbi] 80 mg PO DAILY 05/05/15 05/05/15 Unknown History Eszopiclone [Lunesta] 3 mg PO QHS 05/05/15 05/05/15 11/15/16 History Glimepiride [Amaryl] 4 mg PO BID 05/05/15 05/05/15 11/15/16 History Meloxicam [Mobic] 7.5 mg PO QDAY 05/05/15 05/05/15 11/15/16 History Aspirin [Adult Low Dose Aspirin EC] 81 mg PO 11/16/16 11/15/16 History Diltiazem 11/16/16 11/15/16 History Empagliflozin [Jardiance] 25 mg PO DAILY 11/16/16 11/16/16 11/15/16 History Esomeprazole Magnesium [NexIUM] 40 mg PO QDAY 11/16/16 11/16/16 11/15/16 History Eszopiclone [Lunesta] 3 mg PO 11/16/16 11/15/16 History Isosorb Dinit/Hydralazine [Bidil 11/16/16 11/15/16 History 20/37.5MG] Losartan [Cozaar] 50 mg PO QDAY 11/16/16 11/16/16 11/15/16 History Pravastatin 40 mg PO DAILY 11/16/16 11/16/16 11/15/16 History Pregabalin [Lyrica] 75 mg PO 11/16/16 11/15/16 History methOCARBAMOL [Robaxin TAB] 750 mg PO 11/16/16 11/15/16 History Prednisone [predniSONE 10 mg 10 mg PO .TAPER #1 tab.ds.pk 09/22/17 Unknown Rx (6-Day Pack, 21 Tabs)] diphenhydrAMINE [Benadryl CAP] 25 mg PO Q8HR PRN #20 capsule 09/22/17 Unknown Rx Albuterol Sulfate [Proventil Hfa] 2 puff IH Q4HR PRN #1 hfa.aer.ad 04/12/19 Unknown Rx Benzonatate [Tessalon Perles] 100 mg PO Q8HR PRN #20 capsule 04/12/19 Unknown Rx Naproxen [Naprosyn] 500 mg PO BID #20 tablet 04/12/19 Unknown Rx predniSONE [Deltasone] 50 mg PO QDAY #5 tab 04/12/19 Unknown Rx Ibuprofen [Motrin] 600 mg PO Q8H PRN #30 tablet 11/04/20 Unknown Rx traMADoL [Ultram] 50 mg PO Q6HR PRN #12 tablet 11/04/20 Unknown Rx Cetirizine HCl 10 mg PO DAILY 7 Days #7 tablet 11/15/20 Unknown Rx EPINEPHrine [Epipen] 0.3 mg IJ ONCE #1 auto.injct 11/15/20 Unknown Rx Famotidine [Acid Controller] 20 mg PO BID 3 Days #6 tablet 11/15/20 Unknown Rx predniSONE [Deltasone] 3 tab PO QDAY 3 Days #9 tab 11/15/20 Unknown Rx ED Physical Exam - General Limitations: No Limitations General appearance: alert, in no apparent distress - Head Head exam: Present: atraumatic, normocephalic, other (Urticaria involving the face normal lip signs normal tongue size) - Eye Eye exam: Present: normal appearance - ENT ENT exam: Present: normal orophraynx, mucous membranes moist, other (Normal left side normal tongue size) - Neck Neck exam: Present: normal inspection - Respiratory Respiratory exam: Present: normal lung sounds bilaterally. Absent: respiratory distress - Cardiovascular Cardiovascular Exam: Present: regular rate, normal rhythm. Absent: systolic murmur, diastolic murmur, rubs, gallop - GI/Abdominal GI/Abdominal exam: Present: soft, normal bowel sounds - Extremities Exam Extremities exam: Present: normal inspection - Back Exam Back exam: Present: normal inspection - Neurological Exam Neurological exam: Present: alert, oriented X3 - Psychiatric Psychiatric exam: Present: normal affect, normal mood - Skin Skin exam: Present: warm, dry, intact, normal color, other (No rash involving the upper or lower torso). Absent: rash ED Course Vital Signs 07/09/21 13:22 Temperature 98.6 F Pulse Rate 85 Respiratory 20 Rate Blood Pressure 141/85 O2 Sat by Pulse 99 Oximetry ED Medical Decision Making - Medical Decision Making Acute allergic reaction to shrimp: Patient received IV Solu-Medrol, IV famotidine, cetirizine. Patient prescribed EpiPen. She was given verbal instructions on how and when to use EpiPen. I encouraged her to avoid eating shrimp. Patient also prescribed cetirizine, prednisone and famotidine. Discharged home. Critical care attestation.: If time is entered above; I have spent that time in minutes in the direct care of this critically ill patient, excluding procedure time. ED Disposition Clinical Impression: Acute allergic reaction, Allergy to seafood Disposition: DC-01 TO HOME OR SELFCARE Is pt being admited?: No Does the pt Need Aspirin: No Condition: Stable Instructions: Seafood Allergy Prescriptions: Famotidine [Acid Controller] 20 mg PO BID 3 Days #6 tablet Cetirizine HCl 10 mg PO DAILY 7 Days #7 tablet predniSONE [Deltasone] 3 tab PO QDAY 3 Days #9 tab EPINEPHrine [Epipen] 0.3 mg IJ ONCE #1 auto.injct
[2020-11-15 15:17] VITALS: BP 128/64
== END 2020-11-15 15:43 | disposition home or self-care (01) ==
LOC: ED 13:17
DX: T78.40XA Allergy, unspecified, initial encounter (principal); I10 Essential (primary) hypertension; E11.9 Type 2 diabetes mellitus without complications; K21.9 Gastro-esophageal reflux disease without esophagitis; Z79.899 Other long term (current) drug therapy; Z90.710 Acquired absence of both cervix and uterus; Z98.890 Other specified postprocedural states; Z98.51 Tubal ligation status; Z91.013 Allergy to seafood; Y92.89 Other specified places as the place of occurrence of the external cause
CPT/HCPCS: 96374; 96375; 99282; J2930

== ENCOUNTER 2021-02-01 12:23 | Observation (INO) | payer MEDICARE ==
[2021-02-01] MEDS ORDERED: ASPIRIN 81 MG TAB CHEW PO ONE (13:10)
[2021-02-01] MEDS ORDERED: NITROGLYCERIN 0.4 MG TAB SUBL SL ONE (13:10)
--- NOTE | 2021-02-01 13:11 | Emergency Department Report ---
ED General Adult HPI - General Chief complaint: Chest Pain Stated complaint: CHEST PAINS/BLOOD PRESSURE Time Seen by Provider: 02/01/21 13:00 Source: patient Mode of arrival: Ambulatory Limitations: No Limitations - History of Present Illness Initial comments: Patient presents with a 2 to 3-day history of intermittent chest pain. She has noticed that when she gets up and moves, she has chest pain. The pain is substernally located. It is described as pressure. It does not radiate or migrate. She states she might of felt a little short of breath previously. Again, she had episodes yesterday and today of these pains. They did not seem to be continuous. When she lies down or rest, the pain does seem to resolve. Patient is never had an Echocardiogram or stress test done that she can recall. she has never been told that she has heart disease. There is no known family history of coronary artery disease. She has no recent travel or trauma. There is no pain or swelling in the legs. Pain is not pleuritic. - Related Data Home Medications Medication Instructions Recorded Confirmed Last Taken Azilsartan Medoxomil [Edarbi] 80 mg PO DAILY 05/05/15 05/05/15 Unknown Eszopiclone [Lunesta] 3 mg PO QHS 05/05/15 05/05/15 11/15/16 Glimepiride [Amaryl] 4 mg PO BID 05/05/15 05/05/15 11/15/16 Meloxicam [Mobic] 7.5 mg PO QDAY 05/05/15 05/05/15 11/15/16 Aspirin [Adult Low Dose Aspirin EC] 81 mg PO 11/16/16 11/15/16 Diltiazem 11/16/16 11/15/16 Empagliflozin [Jardiance] 25 mg PO DAILY 11/16/16 11/16/16 11/15/16 Esomeprazole Magnesium [NexIUM] 40 mg PO QDAY 11/16/16 11/16/16 11/15/16 Eszopiclone [Lunesta] 3 mg PO 11/16/16 11/15/16 Isosorb Dinit/Hydralazine [Bidil 11/16/16 11/15/16 20/37.5MG] Losartan [Cozaar] 50 mg PO QDAY 11/16/16 11/16/1611/15/17 Pravastatin 40 mg PO DAILY 11/16/16 11/16/16 11/15/16 Pregabalin [Lyrica] 75 mg PO 11/16/16 11/15/16 methOCARBAMOL [Robaxin TAB] 750 mg PO 11/16/16 11/15/16 Previous Rx's Medication Instructions Recorded Last Taken Type Prednisone [predniSONE 10 mg 10 mg PO .TAPER #1 tab.ds.pk 09/22/17 Unknown Rx (6-Day Pack, 21 Tabs)] diphenhydrAMINE [Benadryl CAP] 25 mg PO Q8HR PRN #20 capsule 09/22/17 Unknown Rx Albuterol Sulfate [Proventil Hfa] 2 puff IH Q4HR PRN #1 hfa.aer.ad 04/12/19 Unknown Rx Benzonatate [Tessalon Perles] 100 mg PO Q8HR PRN #20 capsule 04/12/19 Unknown Rx Naproxen [Naprosyn] 500 mg PO BID #20 tablet 04/12/19 Unknown Rx predniSONE [Deltasone] 50 mg PO QDAY #5 tab 04/12/19 Unknown Rx Ibuprofen [Motrin] 600 mg PO Q8H PRN #30 tablet 11/04/20 Unknown Rx traMADoL [Ultram] 50 mg PO Q6HR PRN #12 tablet 11/04/20 Unknown Rx Cetirizine HCl 10 mg PO DAILY 7 Days #7 tablet 11/15/20 Unknown Rx EPINEPHrine [Epipen] 0.3 mg IJ ONCE #1 auto.injct 11/15/20 Unknown Rx Famotidine [Acid Controller] 20 mg PO BID 3 Days #6 tablet 11/15/20 Unknown Rx predniSONE [Deltasone] 3 tab PO QDAY 3 Days #9 tab 11/15/20 Unknown Rx Allergies Allergy/AdvReac Type Severity Reaction Status Date / Time No Known Allergies Allergy Verified 11/15/20 13:20 ED Review of Systems ROS: Stated complaint: CHEST PAINS/BLOOD PRESSURE Other details as noted in HPI Comment: All other systems reviewed and negative Constitutional: denies: fever Eyes: denies: eye pain ENT: denies: ear pain Respiratory: denies: cough Cardiovascular: as per HPI Endocrine: denies: unexplained weight loss Gastrointestinal: denies: abdominal pain Genitourinary: denies: dysuria Musculoskeletal: denies: back pain Skin: denies: rash Neurological: denies: headache Hematological/Lymphatic: denies: easy bruising ED Past Medical Hx - Past Medical History Previous Medical History?: Yes Hx Hypertension: Yes Hx Diabetes: Yes Hx GERD: Yes Hx Renal Disease: Yes (Stage 3 kidney disease) Hx Seizures: No Hx Asthma: No Additional medical history: over active thyroid - Surgical History Past Surgical History?: Yes Additional Surgical History: HYSTO/HEMORRHOIDECTOMY/GASTRIC BY PASS LAP BAND H ERNIA.ROTATOR CUP BLADDER PROLAPSE. MASS REMOVAL RIGHT FOOT. - Family History Family history: diabetes, hypertension, other ( No history of heart disease) - Social History Smoking Status: Never Smoker Substance Use Type: Alcohol - Medications Home Medications: Home Medications Medication Instructions Recorded Confirmed Last Taken Type Azilsartan Medoxomil [Edarbi] 80 mg PO DAILY 05/05/15 05/05/15 Unknown History Eszopiclone [Lunesta] 3 mg PO QHS 05/05/15 05/05/15 11/15/16 History Glimepiride [Amaryl] 4 mg PO BID 05/05/15 05/05/15 11/15/16 History Meloxicam [Mobic] 7.5 mg PO QDAY 05/05/15 05/05/15 11/15/16 History Aspirin [Adult Low Dose Aspirin EC] 81 mg PO 11/16/16 11/15/16 History Diltiazem 11/16/16 11/15/16 History Empagliflozin [Jardiance] 25 mg PO DAILY 11/16/16 11/16/16 11/15/16 History Esomeprazole Magnesium [NexIUM] 40 mg PO QDAY 11/16/16 11/16/16 11/15/16 History Eszopiclone [Lunesta] 3 mg PO 11/16/16 11/15/16 History Isosorb Dinit/Hydralazine [Bidil 11/16/16 11/15/16 History 20/37.5MG] Losartan [Cozaar] 50 mg PO QDAY 11/16/16 11/16/16 11/15/16 History Pravastatin 40 mg PO DAILY 11/16/16 11/16/16 11/15/16 History Pregabalin [Lyrica] 75 mg PO 11/16/16 11/15/16 History methOCARBAMOL [Robaxin TAB] 750 mg PO 11/16/16 11/15/16 History Prednisone [predniSONE 10 mg 10 mg PO .TAPER #1 tab.ds.pk 09/22/17 Unknown Rx (6-Day Pack, 21 Tabs)] diphenhydrAMINE [Benadryl CAP] 25 mg PO Q8HR PRN #20 capsule 09/22/17 Unknown Rx Albuterol Sulfate [Proventil Hfa] 2 puff IH Q4HR PRN #1 hfa.aer.ad 04/12/19 Unknown Rx Benzonatate [Tessalon Perles] 100 mg PO Q8HR PRN #20 capsule 04/12/19 Unknown Rx Naproxen [Naprosyn] 500 mg PO BID #20 tablet 04/12/19 Unknown Rx predniSONE [Deltasone] 50 mg PO QDAY #5 tab 04/12/19 Unknown Rx Ibuprofen [Motrin] 600 mg PO Q8H PRN #30 tablet 11/04/20 Unknown Rx traMADoL [Ultram] 50 mg PO Q6HR PRN #12 tablet 11/04/20 Unknown Rx Cetirizine HCl 10 mg PO DAILY 7 Days #7 tablet 11/15/20 Unknown Rx EPINEPHrine [Epipen] 0.3 mg IJ ONCE #1 auto.injct 11/15/20 Unknown Rx Famotidine [Acid Controller] 20 mg PO BID 3 Days #6 tablet 11/15/20 Unknown Rx predniSONE [Deltasone] 3 tab PO QDAY 3 Days #9 tab 11/15/20 Unknown Rx ED Physical Exam - General Limitations: No Limitations, Other ( pulse ox was noted and normal. She is not hypoxic.) General appearance: alert, in no apparent distress - Head Head exam: Present: atraumatic, normocephalic, normal inspection - Eye Eye exam: Present: normal appearance, EOMI. Absent: scleral icterus - ENT ENT exam: Present: normal exam, normal orophraynx, normal external ear exam - Neck Neck exam: Absent: tenderness, meningismus - Respiratory Respiratory exam: Present: normal lung sounds bilaterally. Absent: respiratory distress - Cardiovascular Cardiovascular Exam: Present: regular rate, normal rhythm - GI/Abdominal GI/Abdominal exam: Present: soft. Absent: distended, tenderness - Extremities Exam Extremities exam: Present: normal capillary refill. Absent: pedal edema, calf tenderness - Back Exam Back exam: Absent: CVA tenderness (R), CVA tenderness (L) - Neurological Exam Neurological exam: Present: alert, oriented X3, CN II-XII intact. Absent: motor sensory deficit - Psychiatric Psychiatric exam: Present: normal affect, normal mood - Skin Skin exam: Present: warm, dry ED Course Vital Signs 02/01/21 02/01/21 12:34 13:36 Temperature 98.6 F Pulse Rate 74 54 L Respiratory 20 Rate Blood Pressure 156/80 122/74 O2 Sat by Pulse 99 Oximetry - Reevaluation(s) Reevaluation #1: 02/01/21 14:22 -Labs have been ordered. Chest x-ray has been noted. This is normal. Reevaluation #2: 02/01/21 15:12 Troponin has been noted. EKG has been reviewed. Heart score is 5. ED Medical Decision Making - Lab Data Result diagrams: 02/01/21 13:42 02/01/21 13:42 - EKG Data -: EKG Interpreted by Me - EKG Data 02/01/21 15:12 EKG shows a normal sinus rhythm at 66. Intervals are normal including a QRS of 78 and a QT corrected of 1-20. Patient has no ST elevation to suggest STEMI. There is T wave inversion in V1 through V3. Patient has nonspecific T wave flattening in the limb leads and V4 through V6. - Medical Decision Making Patient presented with chest pain. Heart score is 5. She has no evidence of aortic dissection based on absence of pulse deficit. Patient does not appear to be septic or toxic. There is no radiographic evidence of pneumonia or pneumothorax. She states that she has never had any kind of cardiac evaluation including stress test or echo. Patient will be admitted for recertification and further observation. Critical Care Time: No Critical care attestation.: If time is entered above; I have spent that time in minutes in the direct care of this critically ill patient, excluding procedure time. ED Disposition Clinical Impression: Substernal chest pain Disposition: ADMITTED INPATIENT Is pt being admited?: Yes Does the pt Need Aspirin: No Condition: Stable Instructions: Nonspecific Chest Pain, Adult Referrals: IGNA WATSON MD [Primary Care Provider] - 3-5 Days
--- NOTE | 2021-02-01 13:53 | XRay Report ---
CHEST 2 VIEWS INDICATION / CLINICAL INFORMATION: Chest Pain. COMPARISON: 04/12/19 FINDINGS: SUPPORT DEVICES: None. HEART / MEDIASTINUM: No significant abnormality. LUNGS / PLEURA: No significant pulmonary or pleural abnormality. No pneumothorax. ADDITIONAL FINDINGS: No significant additional findings. IMPRESSION: 1. No acute findings. No change. Signer Name: Bella Amaya MD Signed: 02/01/2021 1:49 PM Workstation Name: [id number]
[2021-02-01 14:17] LABS: Hematocrit 35.4 % (30.3-42.9); Hemoglobin 11.7 gm/dl (10.1-14.3); Mean Corpuscular HGB Conc 33 % (30-34); Mean Corpuscular Volume 88 fl (79-97); Platelet Count 118 K/mm3 (140-440); Red Blood Count 4.01 M/mm3 (3.65-5.03)
[2021-02-01 14:29] LABS: BUN/Creatinine Ratio 27; Blood Urea Nitrogen 30 mg/dL (7-17); Calcium 8.6 mg/dL (8.4-10.2); Hemolysis Index 2
--- NOTE | 2021-02-01 20:29 | History and Physical Report ---
History of Present Illness Date of examination: 02/01/21 Date of admission: 02/01/2021 Chief complaint: Chest pain since last night History of present illness: 65-year-old female with history of hypertension, coronary artery disease: Diabetes and chronic kidney disease comes in for chest pain since last night. Chest pain is retrosternal. Not radiating. No diaphoresis or shortness of breath. Patient had a stress test in the past. No stents. History of coronary artery disease present. On Plavix. No exposure to Covid virus. Patient is vaccinated. Chest pain is about 5 on a scale of 1-10. Intermittent in nature. No exacerbating or relieving factors. - Past Medical History --Hypertension: Yes --Diabetes: Yes --GERD: Yes --Renal Disease: Yes (Stage 3 kidney disease) Additional medical history: over active thyroid - Surgical History Past Surgical History?: Yes Additional Surgical History: HYSTO/HEMORRHOIDECTOMY/GASTRIC BY PASS LAP BAND HERNIA.ROTATOR CUP BLADDER PROLAPSE. MASS REMOVAL RIGHT FOOT. - Family History Family history: diabetes, hypertension, other ( No history of heart disease) - Social History Smoking Status: Never Smoker Substance Use Type: Alcohol Review of Systems ROS: Stated complaint: CHEST PAINS/BLOOD PRESSURE Other details as noted in HPI Comment: All other systems reviewed and negative Constitutional: denies: fever Eyes: denies: eye pain ENT: denies: ear pain Respiratory: denies: cough Cardiovascular: as per HPI Endocrine: denies: unexplained weight loss Gastrointestinal: denies: abdominal pain Genitourinary: denies: dysuria Musculoskeletal: denies: back pain Skin: denies: rash Neurological: denies: headache Hematological/Lymphatic: denies: easy bruising Medications and Allergies Allergies Allergy/AdvReac Type Severity Reaction Status Date / Time No Known Allergies Allergy Verified 11/15/20 13:20 Home Medications Medication Instructions Recorded Confirmed Last Taken Type Glimepiride [Amaryl] 4 mg PO BID 05/05/15 02/01/21 11/15/16 History Empagliflozin [Jardiance] 25 mg PO DAILY 11/16/16 02/01/21 11/15/16 History Esomeprazole Magnesium [NexIUM] 40 mg PO QDAY 11/16/16 02/01/21 11/15/16 History Pregabalin 100 mg PO BID 11/16/16 02/01/2117 History Famotidine [Acid Controller] 20 mg PO BID 3 Days #6 tablet 11/15/20 02/01/21 Unknown Rx Gabapentin 300 mg PO Q8HR 02/01/21 02/01/21 Unknown History Isosorbide Mononitrate [Isosorbide 120 mg PO QDAY 02/01/21 02/01/21 Unknown History Mononitrate ER] Pravastatin [Pravachol] 40 mg PO QHS 02/01/21 02/01/21 Unknown History Ranolazine [Ranolazine ER] 1,000 mg PO BID 02/01/21 02/01/21 Unknown History Sitagliptin Phosphate [Januvia] 100 mg PO QDAY 02/01/21 02/01/21 Unknown History Exam - Constitutional Vitals: Temp Pulse Resp BP Pulse Ox 98.6 F 54 L 20 122/74 99 02/01/21 12:34 02/01/21 13:36 02/01/21 12:34 02/01/21 13:36 02/01/21 12:34 General appearance: Present: no acute distress, well-nourished - EENT Eyes: Present: PERRL ENT: hearing intact, clear oral mucosa - Neck Neck: Present: supple, normal ROM - Respiratory Respiratory effort: normal Respiratory: bilateral: CTA - Cardiovascular Heart rate: 78 Rhythm: regular Heart Sounds: Present: S1 & S2. Absent: rub, click - Extremities Extremities: pulses symmetrical, No edema Peripheral Pulses: within normal limits - Abdominal General gastrointestinal: Present: soft, non-tender, non-distended, normal bowel sounds Female genitourinary: Present: normal - Integumentary Integumentary: Present: clear, warm, dry - Musculoskeletal Musculoskeletal: gait normal, strength equal bilaterally - Psychiatric Psychiatric: appropriate mood/affect, intact judgment & insight - Neurologic Neurologic: CNII-XII intact, moves all extremities HEART Score - HEART Score History: Moderately suspicious Age: > 65 Risk factors: > 3 risk factors or hx of atherosclerotic disease Troponin: Troponin T < 0.010 ng/mL (0.00-0.029) 02/01/21 15:38 Troponin: 1-3x normal limit - Critical Actions Critical Actions: 4-6 pts:12-16.6% risk of adverse cardiac event. Should be admitted Results - Labs CBC & Chem 7: 02/02/21 03:12 02/02/21 03:12 Labs: Laboratory Last Values WBC 4.1 K/mm3 (4.5-11.0) L 02/01/21 13:42 RBC 4.01 M/mm3 (3.65-5.03) 02/01/21 13:42 Hgb 11.7 gm/dl (10.1-14.3) 02/01/21 13:42 Hct 35.4 % (30.3-42.9) 02/01/21 13:42 MCV 88 fl (79-97) 02/01/21 13:42 MCH 29 pg (28-32) 02/01/21 13:42 MCHC 33 % (30-34) 02/01/21 13:42 RDW 14.0 % (13.2-15.2) 02/01/21 13:42 Plt Count 118 K/mm3 (140-440) L 02/01/21 13:42 Sodium 140 mmol/L (137-145) 02/01/21 13:42 Potassium 4.7 mmol/L (3.6-5.0) 02/01/21 13:42 Chloride 107.0 mmol/L (98-107) 02/01/21 13:42 Carbon Dioxide 21 mmol/L (22-30) L 02/01/21 13:42 Anion Gap 17 mmol/L 02/01/21 13:42 BUN 30 mg/dL (7-17) H 02/01/21 13:42 Creatinine 1.1 mg/dL (0.6-1.2) 02/01/21 13:42 Estimated GFR 60 ml/min 02/01/21 13:42 BUN/Creatinine Ratio 27 % 02/01/21 13:42 Glucose 198 mg/dL (65-100) H 02/01/21 13:42 Calcium 8.6 mg/dL (8.4-10.2) 02/01/21 13:42 Troponin T < 0.010 ng/mL (0.00-0.029) 02/01/21 15:38 Short CBC 02/01/21 02/02/21 Range/Units 13:42 03:12 WBC 4.1 L 3.6 L (4.5-11.0) K/mm3 Hgb 11.7 11.7 (10.1-14.3) gm/dl Hct 35.4 34.7 (30.3-42.9) % Plt Count 118 L 110 L (140-440) K/mm3 BMP 02/01/21 02/02/21 13:42 03:12 Sodium 140 137 Potassium 4.7 4.4 Chloride 107.0 104.3 Carbon Dioxide 21 L 23 BUN 30 H 26 H Creatinine 1.1 1.0 Glucose 198 H 197 H Calcium 8.6 8.8 Cardiac Enzymes 02/01/21 02/01/21 02/01/21 Range/Units 13:42 15:38 20:40 Total Creatine Kinase 57 (30-135) units/L CK-MB (CK-2) 1.4 (0.0-4.0) ng/mL Troponin T < 0.010 < 0.010 < 0.010 (0.00-0.029) ng/mL 02/02/21 Range/Units 03:12 Total Creatine Kinase 54 (30-135) units/L CK-MB (CK-2) 1.3 (0.0-4.0) ng/mL Troponin T < 0.010 (0.00-0.029) ng/mL Liver Function 02/02/21 Range/Units 03:12 Total Bilirubin 0.20 (0.1-1.2) mg/dL AST 10 (5-40) units/L ALT 13 (7-56) units/L Alkaline Phosphatase 112 (35-129) units/L Albumin 3.9 (3.9-5) g/dL - Imaging and Cardiology EKG: report reviewed (Normal fontanelle no acute ST-T wave changes) Chest x-ray: report reviewed (No acute findings) Assessment and Plan Advance Directives: Yes (Full code) Plan of care discussed with patient/family: Yes - Patient Problems (1) Acute coronary syndrome Current Visit: Yes Status: Acute Plan to address problem: Chest pain protocol Serial troponins and CK-MBs We will discharge tomorrow because Lexiscan is not available for 2 days and get the stress test as outpatient with follow-up with [facility] If cardiology agrees (2) T2DM (type 2 diabetes mellitus) Current Visit: Yes Status: Chronic Qualifiers: Diabetes mellitus 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 transplanted heart: [place] heart Plan to address problem: Continue Ranexa and isosorbide mononitrate and aspirin (5) Hyperlipidemia Current Visit: Yes Status: Acute (6) Hyperlipidemia Current Visit: Yes Status: Chronic Qualifiers: Hyperlipidemia type: mixed hyperlipidemia Qualified Code(s): E78.2 - Mixed hyperlipidemia Plan to address problem: Continue statins (7) GERD (gastroesophageal reflux disease) Current Visit: Yes Status: Chronic Qualifiers: Esophagitis presence: without esophagitis Qualified Code(s): K21.9 - Gastro-esophageal reflux disease without esophagitis Plan to address problem: Continue famotidine (8) DVT prophylaxis Current Visit: Yes Status: Acute Plan to address problem: Continue heparin and GI prophylaxis
[2021-02-01] MEDS ORDERED: METOCLOPRAMIDE 10 MG/2 ML INJ IV PRN (20:31)
[2021-02-01] MEDS ORDERED: MORPHINE 2 MG/1 ML INJ IV PRN (20:31)
[2021-02-01] MEDS ORDERED: ACETAMINOPHEN 325 MG TAB PO PRN (20:31)
[2021-02-01] MEDS ORDERED: ONDANSETRON 4 MG/2 ML INJ IV PRN (20:31)
[2021-02-01 21:40] LABS: Creatine Kinase MB 1.4 ng/mL (0.0-4.0)
[2021-02-02 03:23] LABS: Eosinophils # (Auto) 0.3 K/mm3 (0.0-0.4); Eosinophils % (Auto) 8.4 % (0.0-4.3); Hematocrit 34.7 % (30.3-42.9); Hemoglobin 11.7 gm/dl (10.1-14.3); Lymphocytes # (Auto) 1.5 K/mm3 (1.2-5.4); Lymphocytes % (Auto) 41.3 % (13.4-35.0); Mean Corpuscular HGB Conc 34 % (30-34); Mean Corpuscular Volume 88 fl (79-97); Monocytes # (Auto) 0.4 K/mm3 (0.0-0.8); Monocytes % (Auto) 10.9 % (0.0-7.3); Platelet Count 110 K/mm3 (140-440); Red Blood Count 3.93 M/mm3 (3.65-5.03); Red Cell Distribution Width 14.1 % (13.2-15.2)
[2021-02-02 03:54] LABS: Creatine Kinase MB 1.3 ng/mL (0.0-4.0)
[2021-02-02 03:55] LABS: Alanine Aminotransferase 13 units/L (7-56); Albumin 3.9 g/dL (3.9-5); BUN/Creatinine Ratio 26; Blood Urea Nitrogen 26 mg/dL (7-17); Calcium 8.8 mg/dL (8.4-10.2); Hemolysis Index 2
[2021-02-02] MEDS ORDERED: HYDROmorphone 1 MG/1 ML INJ IV PRN (09:57)
[2021-02-02] MEDS ORDERED: ACETAMINOPHEN 325 MG TAB PO PRN (09:57)
[2021-02-02] MEDS ORDERED: oxyCODONE /ACETAMINOPHEN 5-325MG TAB PO PRN (09:57)
[2021-02-02] MEDS ORDERED: ONDANSETRON 4 MG/2 ML INJ IV PRN (09:57)
[2021-02-02] MEDS ORDERED: NON-FORMULARY EACH (Sitagliptin Phosphate [Januvia] 100 MG Tablet) PO SCH (10:15)
[2021-02-02] MEDS: FAMOTIDINE 20 MG TAB PO SCH ×2 (12:57→22:24)
[2021-02-02] MEDS: GLIMEPIRIDE 4 MG TAB PO SCH ×2 (12:57→22:22)
[2021-02-02] MEDS: LINAGLIPTIN 5 MG TAB PO SCH (12:58)
[2021-02-02] MEDS: HEPARIN 5,000 UNIT/1 ML VIAL SUB-Q SCH ×2 (12:58→22:24)
[2021-02-02] MEDS ORDERED: CYCLOBENZAPRINE 10 MG TAB PO ONE (16:07)
--- NOTE | 2021-02-02 17:16 | Progress Note ---
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 transplanted heart: [place] heart Plan to address problem: Continue Ranexa and isosorbide mononitrate and aspirin (5) Hyperlipidemia Current Visit: Yes Status: Chronic Qualifiers: Hyperlipidemia type: mixed hyperlipidemia Qualified Code(s): E78.2 - Mixed hyperlipidemia Plan to address problem: Continue statins (6) GERD (gastroesophageal reflux disease) Current Visit: Yes Status: Chronic Qualifiers: Esophagitis presence: without esophagitis Qualified Code(s): K21.9 - Gastro-esophageal reflux disease without esophagitis Plan to address problem: Continue famotidine (7) DVT prophylaxis Current Visit: Yes Status: Acute Plan to address problem: Continue heparin and GI prophylaxis Subjective Date of service: 02/02/21 Principal diagnosis: Acute coronary syndrome Interval history: 65-year-old female with history of hypertension, coronary artery disease: Diabetes and chronic kidney disease comes in for chest pain since last night. Chest pain is retrosternal. Not radiating. No diaphoresis or shortness of b reath. Patient had a stress test in the past. No stents. History of coronary artery disease present. On Plavix. No exposure to Covid virus. Patient is vaccinated. Chest pain is about 5 on a scale of 1-10. Intermittent in nature. No exacerbating or relieving factors. 02/02/2021 Chest pain-free Has muscle spasms which were relieved by Flexeril Troponins are negative Due for Lexiscan in a.m. of 02/03/2021 Objective - Constitutional Vitals: Vital Signs - 12hr 02/02/21 02/02/21 02/02/21 07:01 08:01 09:01 Pulse Rate Respiratory Rate Blood Pressure 164/80 165/81 169/73 O2 Sat by Pulse 98 99 98 Oximetry 02/02/21 02/02/21 02/02/21 14:43 15:00 16:01 Pulse Rate 66 66 74 Respiratory 15 19 Rate Blood Pressure 169/73 132/82 118/78 O2 Sat by Pulse 100 99 97 Oximetry General appearance: Present: no acute distress, well-nourished - EENT Eyes: PERRL, EOM intact ENT: hearing intact, clear oral mucosa Ears: bilateral: normal - Neck Neck: supple, normal ROM - Respiratory Respiratory effort: normal Respiratory: bilateral: CTA - Breasts Breasts: normal - Cardiovascular Heart rate: 78 Rhythm: regular Heart Sounds: Present: S1 & S2. Absent: gallop, rub Extremities: pulses intact, No edema, normal color, Full ROM - Gastrointestinal General gastrointestinal: Present: soft, non-tender, non-distended, normal bowel sounds - Genitourinary Female genitourinary: normal - Integumentary Integumentary: clear, warm, dry - Musculoskeletal Musculoskeletal: 1, strength equal bilaterally - Neurologic Neurologic: moves all extremities - Psychiatric Psychiatric: memory intact, appropriate mood/affect, intact judgment & insight - Labs CBC & Chem 7: 02/02/21 03:12 02/02/21 03:12 Labs: Abnormal lab results 02/02/21 02/02/21 02/02/21 Range/Units 03:12 03:12 16:10 WBC 3.6 L (4.5-11.0) K/mm3 Plt Count 110 L (140-440) K/mm3 Lymph % (Auto) 41.3 H (13.4-35.0) % [place] % (Auto) 10.9 H (0.0-7.3) % Eos % (Auto) 8.4 H (0.0-4.3) % Seg Neutrophils % 38.4 L (40.0-70.0) % Seg Neutrophils # 1.4 L (1.8-7.7) K/mm3 BUN 26 H (7-17) mg/dL Glucose 197 H (65-100) mg/dL POC Glucose 157 H (70-105) mg/dL HEART Score - HEART Score Age: > 65 Risk factors: > 3 risk factors or hx of atherosclerotic disease Troponin: Troponin T < 0.010 ng/mL (0.00-0.029) 02/02/21 03:12 Troponin: 1-3x normal limit - Critical Actions Critical Actions: 4-6 pts:12-16.6% risk of adverse cardiac event. Should be admitted
[2021-02-02] MEDS ORDERED: PRAVASTATIN 40 MG TAB PO SCH (22:00)
[2021-02-02] MEDS: RANOLAZINE ER 500 MG TAB 12HR PO SCH (22:21)
[2021-02-02] MEDS: CYCLOBENZAPRINE 10 MG TAB PO SCH (22:22)
[2021-02-02] MEDS: PREGABALIN 50 MG CAP PO SCH ×2 (22:22→22:23)
[2021-02-03 06:26] LABS: Albumin 3.8 g/dL (3.9-5); Calcium 8.4 mg/dL (8.4-10.2)
[2021-02-03 06:30] LABS: Basophils % (Auto) 0.8 % (0.0-1.8); Eosinophils # (Auto) 0.3 K/mm3 (0.0-0.4); Eosinophils % (Auto) 6.8 % (0.0-4.3); Hematocrit 33.2 % (30.3-42.9); Hemoglobin 11.3 gm/dl (10.1-14.3); Lymphocytes # (Auto) 1.5 K/mm3 (1.2-5.4); Lymphocytes % (Auto) 35.9 % (13.4-35.0); Mean Corpuscular HGB Conc 34 % (30-34); Mean Corpuscular Volume 88 fl (79-97); Monocytes # (Auto) 0.6 K/mm3 (0.0-0.8); Platelet Count 112 K/mm3 (140-440); Red Blood Count 3.77 M/mm3 (3.65-5.03); Red Cell Distribution Width 14.4 % (13.2-15.2)
[2021-02-03] MEDS ORDERED: REGADENOSON 0.4 MG/5 ML INJ IV ONE (07:39)
[2021-02-03] MEDS ORDERED: FAMOTIDINE 10 MG TAB PO SCH (10:00)
--- NOTE | 2021-02-03 10:37 | Electrocardiograph Report ---
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
[2021-02-03] MEDS: CYCLOBENZAPRINE 10 MG TAB PO SCH ×2 (11:00→16:23)
[2021-02-03] MEDS: RANOLAZINE ER 500 MG TAB 12HR PO SCH (11:00)
[2021-02-03] MEDS: HEPARIN 5,000 UNIT/1 ML VIAL SUB-Q SCH (11:00)
[2021-02-03] MEDS: GLIMEPIRIDE 4 MG TAB PO SCH (11:00)
[2021-02-03] MEDS: PREGABALIN 50 MG CAP PO SCH (11:01)
[2021-02-03] MEDS: LINAGLIPTIN 5 MG TAB PO SCH (11:02)
--- NOTE | 2021-02-03 14:12 | Event Note ---
Date: 02/03/21 Patient completed a Lexiscan thallium stress test, the results are pending.
--- NOTE | 2021-02-03 14:49 | Nuclear Medicine Report ---
APPROVED REPORT Exam: Nuclear Stress Test Indication: Chest pain Patient Location: ED-[facility] Room #: ED 23 Ht: 5 ft 3 in Wt: 200 lbs BSA: 1.93 m2 HR: 52 bpmBP: 120/70 mmHgBMI: 35.42 Stress Test Details Stress Test: Pharmacologic stress testing performed using 0.4 mg of regadenoson per 5 mL given IV over 10 seconds. HR Resting HR: 52 bpm Max HR Achieved: 68 bpm Max Heart Rate (APMHR): 153 bpm Target HR (85% APMHR): 130 bpm % of APMHR: 44 Recovery HR: 59 bpm BP Resting BP: 120/70 mmHg Max BP: 129/57 mmHg Recovery BP: 107/54 mmHg ECG Resting ECG: Sinus Bradycardia Stress ECG: Sinus Bradycardia ST Change: None Arrhythmia: None Recovery ECG: Sinus Rhythm Recovery ST Change: Horizontal ST depression Recovery Arrhythmia: None Clinical Reason for Termination: Completed protocol Stress Symptoms: None Stress ECG Conclusion No chest pain and no ST changes with pharmacologic stress, myocardial perfusion images are pending for final test interpretation. NM EXAM: Myocardial Perfusion REST/STRESS Imaging Protocol: Rest Tc-99m/Stress Tc-99m 1 day Resting Data Rest SPECT myocardial perfusion imaging was performed in supine position 45 minutes following the intravenous injection of 10 mCi of Tc-99m Myoview. Time of rest injection: 0700 Pharmacologic Stress Pharmacologic stress test was performed by injecting Regadenoson 0.4 mg IV push followed by the intravenous injection of 28 mCi of Tc-99m Myoview. Time of stress injection: 0944 Gated Stress SPECT was performed 30 minutes after stress injection. The images were gated to evaluate regional wall motion and calculate left ventricular ejection fraction. Study Quality Study: excellent Lung Uptake: Normal Study Data TID = 0.98. Perfusion Wall Motion The rest and stress images show normal left ventricular wall motion. Nuclear Conclusion ECG Findings: negative for ischemia Clinical Findings: negative for ischemia Nuclear Findings: negative for ischemia Left Ventricular Function: normal Risk Study: low Normal rest and stress myocardial perfusion images. Normal left ventricular systolic function, ejection fraction 63%. Normal study. Conclusion No chest pain and no ST changes with pharmacologic stress, myocardial perfusion images are pending for final test interpretation.
--- NOTE | 2021-02-03 16:15 | Discharge Summary ---
Providers - Providers Date of Admission: 02/02/21 22:17 Date of discharge: 02/03/21 Attending physician: LEEANN HOLLOWAY 02/01/21 20:31 Consult to Physician [CONS] Routine Comment: Consulting Provider: FERNANDEZ DURAN Physician Instructions: Reason For Exam: Acute coronary syndrome Primary care physician: GINA WATSON Hospitalization Condition: Stable Hospital course: Subjective Date of service: 02/03/21 Principal diagnosis: Acute coronary syndrome Interval history: 65-year-old female with history of hypertension, coronary artery disease: Diabetes and chronic kidney disease comes in for chest pain since last night. Chest pain is retrosternal. Not radiating. No diaphoresis or shortness of breath. Patient had a stress test in the past. No stents. History of coronary artery disease present. On Plavix. No exposure to Covid virus. Patient is va ccinated. Chest pain is about 5 on a scale of 1-10. Intermittent in nature. No exacerbating or relieving factors. 02/02/2021 Chest pain-free Has muscle spasms which were relieved by Flexeril Troponins are negative Due for Lexiscan in a.m. of 02/03/2021 02/03/2021 Chest pain-free Patient to be discharged today Lexiscan is negative Patient to continue home medications Assessment and Plan - Patient Problems (1) Acute coronary syndrome Current Visit: Yes Status: Acute Plan to address problem: Lexiscan is negative (2) T2DM (type 2 diabetes mellitus) Current Visit: Yes Status: Chronic Qualifiers: Diabetes mellitus buttermaker continuous churn insulin use: unspecified buttermaker continuous churn insulin use status Plan to address problem: Continue home medications (3) Hypertension Current Visit: Yes Status: Chronic Qualifiers: Hypertension type: primary hypertension Qualified Code(s): I10 - Essential (primary) hypertension Plan to address problem: Continue antihypertensives and adjust medications as necessary (4) Coronary artery disease Current Visit: Yes Status: Chronic Qualifiers: Coronary Disease-Associated Artery/Lesion type: [place] artery [place] vs. transplanted heart: [place] heart Plan to address problem: Continue Ranexa and isosorbide mononitrate and aspirin (5) Hyperlipidemia Current Visit: Yes Status: Chronic Qualifiers: Hyperlipidemia type: mixed hyperlipidemia Qualified Code(s): E78.2 - Mixed hyperlipidemia Plan to address problem: Continue statins (6) GERD (gastroesophageal reflux disease) Current Visit: Yes Status: Chronic Qualifiers: Esophagitis presence: without esophagitis Qualified Code(s): K21.9 - Gastro-esophageal reflux disease without esophagitis Plan to address problem: Continue famotidine (7) DVT prophylaxis Current Visit: Yes Status: Acute Plan to address problem: Continue heparin and GI prophylaxis Disposition: 01 HOME / SELF CARE / HOMELESS Final Discharge Diagnosis (Prints w/discharge instructions): Acute coronary syndrome. T2DM. Hypertension. Coronary artery disease. Hyperlipidemia. GERD Time spent for discharge: 35 minutes - Discharge Diagnoses (1) Acute coronary syndrome Status: Acute (2) T2DM (type 2 diabetes mellitus) Status: Chronic Qualifiers: Diabetes mellitus buttermaker continuous churn insulin use: unspecified buttermaker continuous churn insulin use status (3) Hypertension Status: Chronic Qualifiers: Hypertension type: primary hypertension Qualified Code(s): I10 - Essential (primary) hypertension (4) Coronary artery disease Status: Chronic Qualifiers: Coronary Disease-Associated Artery/Lesion type: [place] artery [place] vs. transplanted heart: [place] heart (5) Hyperlipidemia Status: Chronic Qualifiers: Hyperlipidemia type: mixed hyperlipidemia Qualified Code(s): E78.2 - Mixed hyperlipidemia (6) GERD (gastroesophageal reflux disease) Status: Chronic Qualifiers: Esophagitis presence: without esophagitis Qualified Code(s): K21.9 - Gastro-esophageal reflux disease without esophagitis (7) DVT prophylaxis Status: Acute Core Measure Documentation - Palliative Care Palliative Care/ Comfort Measures: Not Applicable - Core Measures Any of the following diagnoses?: none Exam - Constitutional Vitals: Temp Pulse Resp BP Pulse Ox 98.6 F 73 16 114/61 95 02/01/21 12:34 02/03/21 12:43 02/03/21 12:43 02/03/21 12:43 02/03/21 12:43 General appearance: Present: no acute distress, well-nourished - EENT Eyes: Present: PERRL ENT: hearing intact, clear oral mucosa - Neck Neck: Present: supple, normal ROM - Respiratory Respiratory effort: normal Respiratory: bilateral: CTA - Cardiovascular Heart rate: 78 Rhythm: regular Heart Sounds: Present: S1 & S2. Absent: rub, click - Extremities Extremities: no ischemia, pulses intact, pulses symmetrical, No edema Peripheral Pulses: within normal limits - Abdominal General gastrointestinal: Present: soft, non-tender, non-distended, normal bowel sounds Female genitourinary: Present: normal - Rectal Rectal Exam: deferred - Integumentary Integumentary: Present: clear, warm, dry - Musculoskeletal Musculoskeletal: gait normal, strength equal bilaterally - Psychiatric Psychiatric: appropriate mood/affect, intact judgment & insight - Neurologic Neurologic: CNII-XII intact, moves all extremities - Allied Health Allied health notes reviewed: nursing, case management Plan Activity: no restrictions Diet: diabetic Follow up with: GINA WATSON MD [Primary Care Provider] - 3-5 Days CHARLINE OBRIEN MD [Staff Physician] - 7 Days Prescriptions: Cyclobenzaprine [Flexeril 10 MG TAB] 10 mg PO TID #30 tablet
[2021-02-03 17:07] VITALS: BP 105/68
== END 2021-02-03 19:00 | disposition home or self-care (01) ==
LOC: ED 12:23 → SUATTDRO 12:23 → INTOOBSV 02-02 22:17 → 4A 02-02 22:17
PROVIDERS: ADMIT Hospitalist; ATTEND Internal Medicine
DX: I24.9 Acute ischemic heart disease, unspecified (principal); R07.2 Precordial pain; E11.9 Type 2 diabetes mellitus without complications; I12.9 Hypertensive chronic kidney disease with stage 1 through stage 4 chronic kidney disease, or unspecified chronic kidney disease; N18.30 Chronic kidney disease, stage 3 unspecified; I25.10 Atherosclerotic heart disease of native coronary artery without angina pectoris; K21.9 Gastro-esophageal reflux disease without esophagitis; E78.2 Mixed hyperlipidemia; E05.90 Thyrotoxicosis, unspecified without thyrotoxic crisis or storm; Z79.899 Other long term (current) drug therapy; Z98.890 Other specified postprocedural states; Z79.82 Long term (current) use of aspirin
CPT/HCPCS: 36415; 71046; 78452; 80048; 80053; 82550; 82553; 82962; 84484; 85025; 85027; 93005; 93017; 96372; 99285; A9270; A9502; G0378; J1644; J2405; J2785